=== PATIENT | male | born 1980 | race Caucasian/White ===

== ENCOUNTER 2017-04-07 12:17 | Emergency (ER) | payer MEDICAID ==
[~2017-04-07] VITALS: Ht 175.3 cm; Wt 63.5 kg
[2017-04-07] MEDS ORDERED: ZITHROMAX250 MG PO (12:29)
== END 2017-04-07 12:43 | disposition home or self-care (01) ==
LOC: ED 12:17
DX: L03.116 Cellulitis of left lower limb (principal); L02.612 Cutaneous abscess of left foot
CPT/HCPCS: 99283